=== PATIENT | female | born 1940 | race Caucasian/White ===

== ENCOUNTER 2018-12-25 14:53 | Observation (INO) ==
--- NOTE | 2018-12-25 15:15 | Emergency Department Note ---
Disposition Clinical Impression: Left-sided weakness, Left sided numbness UTI (urinary tract infection) Qualifiers: Urinary tract infection type: acute cystitis Hematuria presence: without hematuria Qualified Code(s): N30.00 - Acute cystitis without hematuria Disposition: Admitted As Inpatient Forms: ED Satisfaction Letter Time of Disposition: 16:28 Neuro HPI - General Chief Complaint: ED Neuro Symptoms/Deficit Stated Complaint: Neuro symptoms Time Seen by Provider: 12/25/18 15:00 Source: patient, family Mode of arrival: private vehicle Limitations: no limitations Nursing Notes Reviewed: Yes Vital Signs Reviewed: Yes - History of Present Illness HPI Narrative: Patient is a 78-year-old female with a past medical history including hypertension, diabetes mellitus, history of TIA, not on any anticoagulation, presenting with chief complaint of left-sided weakness and numbness. The patient states she woke up around 7 AM and felt like her left side of her face had a burning sensation and numbness from her eye into her cheek. She denies any trauma or irritation to her left eye. No increased tearing. She also feels like the left side of her face is weaker than the right side. She also complains of left upper and lower extremity numbness and weakness. She believes she went to bed in her normal state of health. She states symptoms have not gone away and came here for further evaluation. She denies abnormal gait. She states she has a mild generalized pounding headache without any loss of vision or blurred vision. She states she has some mild dental chest pain and shortness of breath as well since this morning. Denies any nausea or vomiting, abdominal pain, fevers, recent illnesses. - Related Data Home Medications: Home Medications Medication Instructions Recorded Confirmed Aspirin [Lo-Dose Aspirin EC] 81 mg PO DAILY 12/25/18 12/25/18 Cholecalciferol (D-3) [Vitamin D] 5,000 unit PO DAILY 12/25/18 12/25/18 Esomeprazole Magnesium [Nexium] 40 mg PO DAILY 12/25/18 12/25/18 Estradiol [Estrace] 0.5 mg PO DAILY 12/25/18 12/25/18 Ibuprofen [Ibu] 400 mg PO BID PRN 12/25/18 12/25/18 Levothyroxine [Synthroid] 88 mcg PO 0630 12/25/18 12/25/18 Potassium Chloride [Klor-Con 10] 20 meq PO DAILY 12/25/18 12/25/18 hydrOXYzine HCl [Hydroxyzine HCl] 25 mg PO Q8H PRN 12/25/18 12/25/18 hydroCHLOROthiazide 25 mg PO DAILY 12/25/18 12/25/18 [Hydrochlorothiazide] All systems ED: reviewed and negative except as stated. Review of Systems: As Per HPI Constitutional: Denies: fever, chills Eyes: Denies: vision change ENT ED: Denies: congestion Cardiovascular: Reports: chest pain. Denies: palpitations Respiratory: Reports: dyspnea. Denies: cough Gastrointestinal: Denies: abdominal pain, nausea, vomiting, diarrhea Genitourinary: Denies: dysuria, hematuria Neurological: Reports: headache, weakness, numbness. Denies: confusion Past Medical History - Past Medical History Attestation: Yes The following information was validated with the patient. Source: patient Medical history: Reports: TIA - Social History Smoking Status: Never smoker Smokeless Tobacco Status: No Alcohol use: Reports: none Drug use: Reports: none Physical Exam - General Limitations: no limitations General appearance: alert, in no apparent distress - Head Head exam: atraumatic, normocephalic - Eye Eye exam: Present: normal appearance, PERRL, EOMI. Absent: conjunctival injection, nystagmus, periorbital swelling - ENT ENT exam: normal exam, normal oropharynx, mucous membranes moist - Neck Neck exam: Present: normal inspection, trachea midline - Chest Chest inspection: Present: normal inspection, symmetric chest wall rise - Respiratory Respiratory exam: Present: normal lung sounds bilaterally. Absent: respiratory distress, wheezes - Cardiovascular Cardiovascular exam: Present: regular rate, normal rhythm - Abdominal Exam Abdominal exam: Present: soft, Non-Tender. Absent: distention - Extremities Exam Extremities exam: Present: normal capillary refill. Absent: pedal edema, calf tenderness - Neurological Exam Neurological exam: Present: alert, oriented X3, CN II-XII intact, motor sensory deficit (diminished on left) - Expanded Neurological Exam Speech: Present: fluid speech Cerebellar function: finger to nose: Normal Motor strength - LUE: 5/5 Motor strength - RUE: 5/5 Motor strength - LLE: 4/5 Motor strength - RLE: 5/5 Upper motor neuron exam: raj neglect: Absent bilaterally, pronator drift: Absent bilaterally - Psychiatric Psychiatric exam: Present: normal affect, normal mood - Skin Skin exam: Present: warm, dry Course Vital Signs Temperature 98 F 12/25/18 15:04 Pulse Rate 70 12/25/18 15:04 Respiratory Rate 16 12/25/18 15:04 Blood Pressure 165/69 12/25/18 15:04 O2 Sat by Pulse Oximetry 98 12/25/18 15:04 Temperature 98 F 12/25/18 15:04 Pulse Rate 71 12/25/18 15:52 Respiratory Rate 16 12/25/18 15:52 Blood Pressure 127/85 12/25/18 15:52 O2 Sat by Pulse Oximetry 98 12/25/18 15:52 Oxygen Delivery Oxygen Delivery Room Air Neuro Symptoms/Deficit - MDM Narrative Medical decision making narrative: Patient 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 She states she woke up this morning at 7 AM with left-sided numbness and left-sided weakness. NIHSS is a 2 for diminished sensation on the left side with left lower extremity weakness with a drift that does not hit the bed. Last known well is unknown and she woke up with the symptoms. Stroke alert was called. 15:[address] Bailey, radiology, who states CT head is negative. 15:[address] Gonzalez, [facility] neurology. Patient is not a candidate for acute intervention either for TPA or acute neurovascular intervention. Admit the patient for further stroke workup. Stroke alert canceled. 16:12 labs and imaging reviewed. Hospitalist paged for admission. 16:[address] Corbett, admitting hospitalist, who accepts. 16:30 Patient has a UTI and Rocephin will be given. - Medical Records Medical records reviewed: Yes I reviewed the patient's medical records. - Lab Data Lab results reviewed: Yes I reviewed the patient's lab results. Result diagrams: 12/25/18 15:11 12/25/18 15:11 Lab Results 12/25/18 12/25/18 12/25/18 Range/Units 15:11 15:11 15:11 WBC 4.8 (4.3-11.1) K/mcL RBC 4.00 (3.82-4.97) M/mcL Hgb 12.5 (11.5-15.4) g/dL Hct 39.0 (35.3-44.9) % MCV 97.5 (83.0-100.0) fL MCH 31.3 (28.0-33.3) pg MCHC 32.1 (31.6-35.5) g/dL RDW 13.2 (11.5-14.5) % Plt Count 192 (140-400) K/mcL MPV 10.4 (9.4-12.4) fL PT 11.0 (9.4-12.1) Seconds INR 1.0 APTT 31.6 (26.0-36.0) Seconds Sodium 140 (136-145) mEq/L Potassium 3.8 (3.5-5.1) mEq/L Chloride 107 (98-107) mEq/L Carbon Dioxide 26 (23-29) mEq/L BUN 21 (8-23) mg/dL Creatinine 0.82 (0.60-1.20) mg/dL Est GFR ( Amer) > 60 (> 60) Est GFR (Non-Af Amer) > 60 (> 60) BUN/Creatinine Ratio 26 (6-26) Glucose 108 H (70-105) mg/dL Calculated Osmolality 294 (280-300) Calcium 9.1 (8.6-10.3) mg/dL Troponin I < 0.03 (< 0.04) ng/mL Urine Color (Yellow) Urine Clarity (Clear) Urine pH (5.0-8.0) pH Units Ur Specific [place] (1.010-1.025) Urine Protein (Neg-Trace) mg/dL Urine Glucose (UA) (Normal) mg/dL Urine Ketones (Negative) mg/dL Urine Blood (Negative) Urine Nitrite (Negative) Urine Bilirubin (Negative) Urine Urobilinogen (Normal) mg/dL Ur Leukocyte Esterase (Negative) Urine Microscopic RBC (0-3) per hpf Urine Microscopic WBC (0-3) per hpf Ur Squamous Epith Cells (None-Few) per lpf Urine Bacteria (None-Few) per hpf Hyaline Casts (None-Few) per lpf Ur Culture Indicated? (NO) 12/25/18 Range/Units 16:18 WBC (4.3-11.1) K/mcL RBC (3.82-4.97) M/mcL Hgb (11.5-15.4) g/dL Hct (35.3-44.9) % MCV (83.0-100.0) fL MCH (28.0-33.3) pg MCHC (31.6-35.5) g/dL RDW (11.5-14.5) % Plt Count (140-400) K/mcL MPV (9.4-12.4) fL PT (9.4-12.1) Seconds INR APTT (26.0-36.0) Seconds Sodium (136-145) mEq/L Potassium (3.5-5.1) mEq/L Chloride (98-107) mEq/L Carbon Dioxide (23-29) mEq/L BUN (8-23) mg/dL Creatinine (0.60-1.20) mg/dL Est GFR ( Amer) (> 60) Est GFR (Non-Af Amer) (> 60) BUN/Creatinine Ratio (6-26) Glucose (70-105) mg/dL Calculated Osmolality (280-300) Calcium (8.6-10.3) mg/dL Troponin I (< 0.04) ng/mL Urine Color Yellow (Yellow) Urine Clarity Clear (Clear) Urine pH 7.0 (5.0-8.0) pH Units Ur Specific [place] 1.013 (1.010-1.025) Urine Protein Negative (Neg-Trace) mg/dL Urine Glucose (UA) Normal (Normal) mg/dL Urine Ketones Negative (Negative) mg/dL Urine Blood Negative (Negative) Urine Nitrite Positive A (Negative) Urine Bilirubin Negative (Negative) Urine Urobilinogen Normal (Normal) mg/dL Ur Leukocyte Esterase Trace H (Negative) Urine Microscopic RBC 3-5 H (0-3) per hpf Urine Microscopic WBC 5-15 H (0-3) per hpf Ur Squamous Epith Cells Many H (None-Few) per lpf Urine Bacteria Many H (None-Few) per hpf Hyaline Casts None Seen (None-Few) per lpf Ur Culture Indicated? YES A (NO) - Radiology Data Radiology results reviewed: Yes I reviewed the patient's radiology results. Head CT 12/25/18 15:30 IMPRESSION: No acute intracranial abnormality. Findings were discussed with Susanne Olivia at 3:32 pm on 12/25/2018. D/ / Snow Bailey MD / Snow Bailey MD Interpreting Provider: Snow Bailey MD Chest X-Ray 12/25/18 16:02 IMPRESSION: No acute findings D/ / Autumn Humphries MD / Autumn Humphries MD Interpreting Provider: Autumn Humphries MD - EKG Data EKG attestation: Yes I reviewed and interpreted this EKG. EKG results narrative: EKG obtained at 1523 shows sinus rhythm with heart rate 69, ME interval 165, QRS duration 117, QTC 428, no ST elevation, no ST depression. Nonspecific intraventricular conduction delay, and normal axis. NIH Stroke Scale - Level of Consciousness LOC: Alert - LOC Questions LOC Questions: Answers both correctly - LOC Commands LOC Commands: Performs both correctly - Best Gaze Best Gaze: Normal - Visual Visual: No visual loss - Facial Palsy Facial Palsy: Normal - Motor Arms Motor Arm-Left: No drift for 10 seconds Motor Arm-Right: No drift for 10 seconds - Motor Legs Motor Leg-Left: Drift, does NOT hit bed Motor Leg-Right: No drift for 5 seconds - Limb Ataxia Limb Ataxia: Normal, No Ataxia - Sensory Sensory: Mild to moderate loss, "not as sharp" - Best Language Best Language: No aphasia - Dysarthria Dysarthria: Normal - Extinction and Inattention Extinction and Inattention: Normal - NIHSS Total Score NIHSS Total Score: 2 TPA Checklist - LKW: 3-4.5 hrs Add. Warnings/Precautions Patient/family understanding: The patient/family members have been counseled and understood the risk, benefit, and alternatives of treatment.
[2018-12-25 15:22] LABS: Hemoglobin 12.5 g/dL (11.5-15.4); Mean Corpuscular HGB Conc 32.1 g/dL (31.6-35.5); Mean Corpuscular Hemoglobin 31.3 pg (28.0-33.3); Mean Corpuscular Volume 97.5 fL (83.0-100.0); Mean Platelet Volume 10.4 fL (9.4-12.4); Platelet Count 192 K/mcL (140-400); Red Cell Distribution Width 13.2 % (11.5-14.5); White Blood Count 4.8 K/mcL (4.3-11.1)
[2018-12-25 15:36] LABS: Activated Partial Thrombo Time 31.6 Seconds (26.0-36.0)
[2018-12-25 15:38] LABS: BUN/Creatinine Ratio 26 (6-26); Blood Urea Nitrogen 21 mg/dL (8-23); Calcium 9.1 mg/dL (8.6-10.3); Carbon Dioxide 26 mEq/L (23-29); Chloride 107 mEq/L (98-107); Glucose 108 mg/dL (70-105); Osmolality,Calculated 294 (280-300); Potassium 3.8 mEq/L (3.5-5.1); Sodium 140 mEq/L (136-145); eGFR For African Americans > 60 (> 60); eGFR For Non-African Americans > 60 (> 60)
[2018-12-25 15:45] LABS: Troponin I < 0.03 ng/mL (< 0.04)
[2018-12-25 16:26] LABS: Bilirubin,Urine Negative (Negative); Blood,Urine Negative (Negative); Clarity,Urine Clear (Clear); Color,Urine Yellow (Yellow); Glucose,Urine (UA) Normal (Normal); Ketones,Urine Negative (Negative); Leukocyte Esterase,Urine Trace (Negative); Nitrite,Urine Positive (Negative); Protein,Urine Negative (Neg-Trace); Specific Gravity,Urine 1.013 (1.010-1.025); Urobilinogen,Urine Normal (Normal)
[2018-12-25 16:28] LABS: Bacteria,Urine Many per hpf (None-Few); Hyaline Casts,Urine None Seen per lpf (None-Few); Squamous Epithelial Cell,Urine Many per lpf (None-Few)
[2018-12-25] MEDS ORDERED: cefTRIAXone 1,000 MG in 0.9 % Sodium Chloride Mini Bag 100 ML IVPB ONE (16:34)
--- NOTE | 2018-12-25 16:38 | Emergency Department Note ---
Disposition Clinical Impression: Left-sided weakness, Left sided numbness UTI (urinary tract infection) Qualifiers: Urinary tract infection type: acute cystitis Hematuria presence: without hematuria Qualified Code(s): N30.00 - Acute cystitis without hematuria Disposition: Admitted As Inpatient Condition: Fair Referrals: Lauro Todd MD [Primary Care Provider] - Forms: ED Satisfaction Letter Time of Disposition: 16:39 General Adult HPI - General Chief complaint: ED Neuro Symptoms/Deficit Stated complaint: Neuro symptoms Time Seen by Provider: 12/25/18 15:00 Source: patient, family Mode of arrival: private vehicle Limitations: no limitations Nursing Notes Reviewed: Yes Vital Signs Reviewed: Yes - History of Present Illness Pain Scale: 7 - Related Data Home Medications Medication Instructions Recorded Confirmed Aspirin [Lo-Dose Aspirin EC] 81 mg PO DAILY 12/25/18 12/25/18 Cholecalciferol (D-3) [Vitamin D] 5,000 unit PO DAILY 12/25/18 12/25/18 Esomeprazole Magnesium [Nexium] 40 mg PO DAILY 12/25/18 12/25/18 Estradiol [Estrace] 0.5 mg PO DAILY 12/25/18 12/25/18 Ibuprofen [Ibu] 400 mg PO BID PRN 12/25/18 12/25/18 Levothyroxine [Synthroid] 88 mcg PO 0630 12/25/18 12/25/18 Potassium Chloride [Klor-Con 10] 20 meq PO DAILY 12/25/18 12/25/18 hydrOXYzine HCl [Hydroxyzine HCl] 25 mg PO Q8H PRN 12/25/18 12/25/18 hydroCHLOROthiazide 25 mg PO DAILY 12/25/18 12/25/18 [Hydrochlorothiazide] Constitutional: Denies: fever, chills Eyes: Denies: vision change ENT ED: Denies: congestion Cardiovascular: Reports: chest pain. Denies: palpitations Respiratory: Reports: dyspnea. Denies: cough Gastrointestinal: Denies: abdominal pain, nausea, vomiting, diarrhea Genitourinary: Denies: dysuria, hematuria Neurological: Reports: headache, weakness, numbness. Denies: confusion Past Medical History - Past Medical History Medical history: Reports: TIA - Social History Smoking Status: Never smoker Smokeless Tobacco Status: No Alcohol use: Reports: none Drug use: Reports: none Physical Exam - General Limitations: no limitations General appearance: alert, in no apparent distress Course Vital Signs Temperature 98 F 12/25/18 15:04 Pulse Rate 70 12/25/18 15:04 Respiratory Rate 16 12/25/18 15:04 Blood Pressure 165/69 12/25/18 15:04 O2 Sat by Pulse Oximetry 98 12/25/18 15:04 Temperature 98 F 12/25/18 15:04 Pulse Rate 71 12/25/18 15:52 Respiratory Rate 16 12/25/18 15:52 Blood Pressure 127/85 12/25/18 15:52 O2 Sat by Pulse Oximetry 98 12/25/18 15:52 Oxygen Delivery Oxygen Delivery Room Air Medical Decision Making - Lab Data Result diagrams: 12/25/18 15:11 12/25/18 15:11 Lab Results 12/25/18 12/25/18 12/25/18 Range/Units 15:11 15:11 15:11 WBC 4.8 (4.3-11.1) K/mcL RBC 4.00 (3.82-4.97) M/mcL Hgb 12.5 (11.5-15.4) g/dL Hct 39.0 (35.3-44.9) % MCV 97.5 (83.0-100.0) fL MCH 31.3 (28.0-33.3) pg MCHC 32.1 (31.6-35.5) g/dL RDW 13.2 (11.5-14.5) % Plt Count 192 (140-400) K/mcL MPV 10.4 (9.4-12.4) fL PT 11.0 (9.4-12.1) Seconds INR 1.0 APTT 31.6 (26.0-36.0) Seconds Sodium 140 (136-145) mEq/L Potassium 3.8 (3.5-5.1) mEq/L Chloride 107 (98-107) mEq/L Carbon Dioxide 26 (23-29) mEq/L BUN 21 (8-23) mg/dL Creatinine 0.82 (0.60-1.20) mg/dL Est GFR ( Amer) > 60 (> 60) Est GFR (Non-Af Amer) > 60 (> 60) BUN/Creatinine Ratio 26 (6-26) Glucose 108 H (70-105) mg/dL Calculated Osmolality 294 (280-300) Calcium 9.1 (8.6-10.3) mg/dL Troponin I < 0.03 (< 0.04) ng/mL Urine Color (Yellow) Urine Clarity (Clear) Urine pH (5.0-8.0) pH Units Ur Specific [place] (1.010-1.025) Urine Protein (Neg-Trace) mg/dL Urine Glucose (UA) (Normal) mg/dL Urine Ketones (Negative) mg/dL Urine Blood (Negative) Urine Nitrite (Negative) Urine Bilirubin (Negative) Urine Urobilinogen (Normal) mg/dL Ur Leukocyte Esterase (Negative) Urine Microscopic RBC (0-3) per hpf Urine Microscopic WBC (0-3) per hpf Ur Squamous Epith Cells (None-Few) per lpf Urine Bacteria (None-Few) per hpf Hyaline Casts (None-Few) per lpf Ur Culture Indicated? (NO) 12/25/18 Range/Units 16:18 WBC (4.3-11.1) K/mcL RBC (3.82-4.97) M/mcL Hgb (11.5-15.4) g/dL Hct (35.3-44.9) % MCV (83.0-100.0) fL MCH (28.0-33.3) pg MCHC (31.6-35.5) g/dL RDW (11.5-14.5) % Plt Count (140-400) K/mcL MPV (9.4-12.4) fL PT (9.4-12.1) Seconds INR APTT (26.0-36.0) Seconds Sodium (136-145) mEq/L Potassium (3.5-5.1) mEq/L Chloride (98-107) mEq/L Carbon Dioxide (23-29) mEq/L BUN (8-23) mg/dL Creatinine (0.60-1.20) mg/dL Est GFR ( Amer) (> 60) Est GFR (Non-Af Amer) (> 60) BUN/Creatinine Ratio (6-26) Glucose (70-105) mg/dL Calculated Osmolality (280-300) Calcium (8.6-10.3) mg/dL Troponin I (< 0.04) ng/mL Urine Color Yellow (Yellow) Urine Clarity Clear (Clear) Urine pH 7.0 (5.0-8.0) pH Units Ur Specific [place] 1.013 (1.010-1.025) Urine Protein Negative (Neg-Trace) mg/dL Urine Glucose (UA) Normal (Normal) mg/dL Urine Ketones Negative (Negative) mg/dL Urine Blood Negative (Negative) Urine Nitrite Positive A (Negative) Urine Bilirubin Negative (Negative) Urine Urobilinogen Normal (Normal) mg/dL Ur Leukocyte Esterase Trace H (Negative) Urine Microscopic RBC 3-5 H (0-3) per hpf Urine Microscopic WBC 5-15 H (0-3) per hpf Ur Squamous Epith Cells Many H (None-Few) per lpf Urine Bacteria Many H (None-Few) per hpf Hyaline Casts None Seen (None-Few) per lpf Ur Culture Indicated? YES A (NO) Attestation Statement - Attestation Attestation: I have seen this patient with the resident physician, I have personally evaluated this patient. I had reviewed the chart and document dictation by the resident physician and aM in agreement with the information documented by the resident physician. Please see documentation by the resident physician for complete chart including past medical history, family medical history, review of systems, current history and physical and laboratory and imaging studies. I was present for all procedures, provided direct supervision for all procedures, was present for the entirety of all procedures and provided direct guidance during the procedures. Please see documentation by the resident physician for any procedures performed. I have reviewed all interpretations of EKGs, and reviewed all EKGs performed on patient's as well. I have also reviewed reports of imaging as provided by radiology. Patient presented to the emergency department with chief complaint of waking up this morning with left-sided weakness and tingling on the left side of her face and left arm and leg. She is a history of prior TIA and/or stroke but does not have chronic deficits at baseline. She states she has also felt a little bit dizzy. She has a mild headache. No severe sudden onset of worst headache of life. No vision changes. The patient denies chest pain shortness of breath or abdominal pain specifically. Denies any recent urinary changes. Last known well was last night, she presents 8 hours after waking up with her symptoms. On physical exam she is alert oriented 3 nontoxic in appearance cranial nerves are grossly intact although she does report some subjective decreased sensation in left side of her face, as well as subjective decreased sensation of the left arm and leg compared to the right but is able to feel everything. No significant weakness. Speech is normal. She is able to recognize objects. Visual farley are intact. Speech is clear without slurring. Abdomen is soft and nontender heart regular rate and rhythm 2/6 systolic murmur no rubs or gallops. Skin is warm dry without rash or petechiae. No CVA tenderness. No meningeal sign. The stroke alert was initiated, contacted [facility] stroke team, to discuss patient's symptoms as she is technically a wake-up stroke, however her symptoms have been present for 8 hours today and last known well was last night with an NIH stroke scale of 2, discussed with stroke neurology, who is in agreement that this patient is not a TPA candidate, would recommend stroke evaluation and admission. Head CT showed no acute findings. Basic laboratory studies were all within acceptable limits apart from evidence to suggest UTI with positive nitrites and positive bacteria but with many squamous cells as well. EKG is a normal sinus rhythm no evidence of acute ischemic dysrhythmia or hyperkalemia chest x-ray showed no acute findings. Patient was admitted to the hospital for further evaluation and management of left-sided weakness and UTI. Total critical care time as provided by myself excluding any procedures performed was 30 minutes.
--- NOTE | 2018-12-25 17:42 | Internal Med History&Physical ---
<Nelly Sheffield - Last Filed: 12/25/18 20:29> Date of Encounter: 12/25/18 Internal Medicine - H&P: HPI History of present illness: Ms. Huston is a 78 year old female Internal Medicine - H&P: Meds Aspirin [Lo-Dose Aspirin EC] 81 mg PO DAILY 12/25/18 [History] Cholecalciferol (D-3) [Vitamin D] 5,000 unit PO DAILY 12/25/18 [History] Esomeprazole Magnesium [Nexium] 40 mg PO DAILY 12/25/18 [History] Estradiol [Estrace] 0.5 mg PO DAILY 12/25/18 [History] Ibuprofen [Ibu] 400 mg PO BID PRN 12/25/18 [History] Levothyroxine [Synthroid] 88 mcg PO 0630 12/25/18 [History] Potassium Chloride [Klor-Con 10] 20 meq PO DAILY 12/25/18 [History] hydrOXYzine HCl [Hydroxyzine HCl] 25 mg PO Q8H PRN 12/25/18 [History] hydroCHLOROthiazide [Hydrochlorothiazide] 25 mg PO DAILY 12/25/18 [History] Allergy/AdvReac Type Severity Reaction Status Date / Time Erythromycin Base Allergy See Verified 12/25/18 17:06 Comments levofloxacin [From Levaquin] Allergy Swelling Verified 12/25/18 17:06 of Lip/Tongue/Throat morphine Allergy Swelling Verified 12/25/18 17:06 of Lip/Tongue/Throat Penicillins [PCN] Allergy Swelling Verified 12/25/18 17:06 of Lip/Tongue/Throat Sulfa (Sulfonamide Allergy Swelling Verified 12/25/18 17:06 Antibiotics) of Lip/Tongue/Throat IV dye Allergy Swelling Uncoded 12/25/18 17:06 of Lip/Tongue/Throat All Systems PM: A 10-system review of systems was performed and is negative for pertinent findings except as documented above in the HPI. - Constitutional Vitals: Temp Pulse Resp BP Pulse Ox 97.6 F 59 16 154/81 98 12/25/18 18:39 12/25/18 18:39 12/25/18 18:39 12/25/18 18:39 12/25/18 18:39 Internal Med - H&P Results - Labs CBC & Chem 7: 12/25/18 15:11 12/25/18 15:11 Labs: Short CBC 12/25/18 Range/Units 15:11 WBC 4.8 (4.3-11.1) K/mcL Hgb 12.5 (11.5-15.4) g/dL Hct 39.0 (35.3-44.9) % Plt Count 192 (140-400) K/mcL BMP 12/25/18 15:11 Sodium 140 Potassium 3.8 Chloride 107 Carbon Dioxide 26 BUN 21 Creatinine 0.82 Glucose 108 H Calcium 9.1 Cardiac Enzymes 12/25/18 Range/Units 15:11 Troponin I < 0.03 (< 0.04) ng/mL Urine 12/25/18 Range/Units 16:18 Urine Color Yellow (Yellow) Urine Clarity Clear (Clear) Urine pH 7.0 (5.0-8.0) pH Units Ur Specific Zimmerman 1.013 (1.010-1.025) Urine Protein Negative (Neg-Trace) mg/dL Urine Glucose (UA) Normal (Normal) mg/dL - Impressions ITS Impressions Head CT 12/25/18 15:30 IMPRESSION: No acute intracranial abnormality. Findings were discussed with Susanne Olivia at 3:32 pm on 12/25/2018. D/ / Snow Bailey MD / Snow Bailey MD Interpreting Provider: Snow Bailey MD Chest X-Ray 12/25/18 16:02 IMPRESSION: No acute findings D/ / Autumn Humphries MD / Autumn Humphries MD Interpreting Provider: Autumn Humphries MD Brain MRI 12/25/18 19:35 IMPRESSION: Cerebral atrophy. Mild chronic small vessel ischemic changes. No acute brain parenchymal abnormality. D/ / 12/25/2018 20:00:49 Flaca Shrestha MD / tracie Interpreting Provider: Flaca Shrestha MD - Assessment and Plan (1) Left-sided weakness Current Visit: Yes Status: Acute (2) Left sided numbness Current Visit: Yes Status: Acute (3) UTI (urinary tract infection) Current Visit: Yes Status: Acute Qualifiers: Urinary tract infection type: acute cystitis Hematuria presence: without hematuria Qualified Code(s): N30.00 - Acute cystitis without hematuria (4) DVT prophylaxis Current Visit: Yes Status: Acute (5) HTN (hypertension) Current Visit: Yes Status: Acute (6) HLD (hyperlipidemia) Current Visit: Yes Status: Acute - Time Spent With Patient Total time spent is greater than 50% in coordination of care (as documented) at patient's floor/unit and/or counseling patient: - Attending Attestation I saw evaluated and examined this patient and reviewed objective data including labs and my medical decision-making was reviewed with the Resident Physician/Medical Student. I agree with the documented findings, disposition and treatment plan as described except to any changes set forth below. We independently had [id number] contact with the patient. 78 year old female with history of hypertension, hypothyroidism, and history of TIA-like symptoms presented to ED for left sided focal weakness, n umbness/tingling. Symptoms started early this morning when she noticed drooping of the left side of her mouth and her eyelid with accompanied burning sensation. She did not have any slurred speech, no recent trauma, no change in vision, no loss of balance, nuchal rigidity. Numbness/tingling and weakness of extremities resolved. She did have similar symptoms one month ago that were less severe. She complains of recent fever for a few weeks. In the ED vitals were within normal limits. Urinalysis was consistent with UTI, remainder of lab workup was negative. A CT without contrast showed no acute process. A stroke alert was called and based on the timing of symptoms and improvement of s ymptoms, she was not a TPA candidate. Patient still has some residual burning of left side of face. On physical exam she is anxious appearing but in no acute distress. No focal deficits on exam, CN II-XII intact, normal patellar DTRs, normal sensation of face and extremities, and strength is symmetrical. Finger to nose and heel to carson tests were normal. Differential diagnosis include TIA vs Thakur's palsy. She will have workup including MRI, echocardiogram, carotid duplex, lipid panel. She will be emperically treated with steroids and acyclovir. Neurology consulted. In regards to UTI, she does not meet sepsis criteria, will be continued on IV Rocephin. <Bryn Burch A - Last Filed: 12/25/18 21:25> Date of Encounter: 12/25/18 Time of Encounter: 17:30 Internal Medicine - H&P: HPI Chief complaint: weakness and numbness Admitted From: Emergency Dept History of present illness: Ms. Huston is a 78 year old female with past medical history of asthma, GERD, hyperlipidemia, hypertension, hypothyroidism, anxiety, and TIA. She initially presented to [facility] ED today complaining of left-sided weakness, numbness, facial droop. She reports that when she woke up around 7 AM she experienced a burning sensation and numbness on the left side of her face. Patient's is at bedside and reported he noted some facial drooping on the left. Patient denied any slurred speech, or inability to close her eyes. Denied any trauma, irritation of the eyes, or increased tearing. She denied any change in vision. She does report some left upper and lower extremity numbness and weakness. She also reports some right hand numbness that has been occurring over the past 2 months. She reports these symptoms feel similar to her previous "mini strokes". During review of systems she does note that she has been experiencing intermittent fever over the last 2 weeks with dysuria. Denies any urinary incontinence, hematuria, or increased frequency of urination. She denied any sinus pressure, sinus pain, chest pain, shortness of breath, abdominal pain, nausea, vomiting. No diarrhea or constipation. Vital signs on presentation in the ED as follows: Temperature 90.8 Heart rate 70 Respiratory rate 16 Blood pressure 165 or 69 SPO2 98% on room air Labs from the ED were grossly unremarkable except for mildly elevated glucose at 108. Initial troponin was negative. Urinalysis demonstrated positive nitrates, trace leukocyte esterase, pyuria, and many urine bacteria. Stroke alert was called for the facial droop, numbness, weakness. CT of the head demonstrated no acute abnormality. A CXR was also obtained which showed no acute findings. The [facility] neurologist recommended that the patient is not a candidate for acute intervention or TPA at this time. Recommended for admission or facility for further stroke workup. The patient was given 1 g IV Rocephin for UTI. Patient seen and examined at bedside in the ED. Reports facial droop, weakness, and numbness have improved since arrival in the ED. She reports great concern for her multiple drug allergies and interactions during admission. No other acute complaints at this time Past Med Surg Social Fam HX - Past Medical History Attestation: Yes The following information was validated with the patient. Source: patient, obtained from family, nursing notes reviewed Medical history: asthma, GERD, hyperlipidemia, hypertension, thyroid disease, TIA Psychiatric history: anxiety - Social History Smoking Status: Never smoker Smokeless Tobacco Status: No Alcohol use: none Drug use: none All Systems PM: A 10-system review of systems was performed and is negative for pertinent findings except as documented above in the HPI. - Constitutional Constitutional: fever(s), no chills - EENT Eyes: no blurry vision, no change in vision, no irritation Ears: no decreased hearing, no tinnitus Nose, mouth and throat: no sinus pain, no sinus pressure - Cardiovascular Cardiovascular ROS IM: no chest pain, no diaphoresis, no dyspnea, no orthopnea, no palpitations - Respiratory Respiratory: no cough, no dyspnea, no wheezing, no chest congestion, no change in phlegm color - Gastrointestinal Gastrointestinal: no abdominal pain, no nausea, no vomiting - Genitourinary Genitourinary: dysuria, vaginal dryness, no difficulty urinating, no flank pain, no hematuria - Musculoskeletal Musculoskeletal ROS IM: no numbness, no tingling - Integumentary Integumentary IM: no erythema, no new lesions, no unusual bruising - Neurological Neurological ROS: as per HPI - Hematologic/Lymphatic Hematologic/Lymphatic: no easy bleeding, no easy bruising - Constitutional Vitals: Temp Pulse Resp BP Pulse Ox 98 F 61 16 157/82 97 12/25/18 15:04 12/25/18 17:02 12/25/18 17:02 12/25/18 17:02 12/25/18 17:02 General appearance: Present: cooperative, A&O X 3, pleasant, no acute distress, answers questions appropriately Exam: Constitutional: Well-developed female in no acute distress Head: Normocephalic, atraumatic Eyes: PERRL, EOMI, conjunctiva pink Neck: Supple, trachea midline, no lymphadenopathy Lungs: Clear to auscultation bilaterally. Nonlabored breathing. No wheezes, rales, or rhonchi noted. Cardiac: RRR. +s1 +s2 No murmurs, clicks, or rubs noted. GI: Abdomen soft, nontender, nondistended. Extremities: Warm, radial pulses palpable and symmetrical. No cyanosis, pedal edema, or calf tenderness. Neuro: Alert and oriented 3. Strength 5 out of 5 in all 4 extremities. Sensation intact. Cranial nerves II through XII intact. Normal speech. No noted facial droop. Skin: Warm, dry, and intact. Internal Med - H&P Results - Labs CBC & Chem 7: 12/25/18 15:11 12/25/18 15:11 Labs: Short CBC 12/25/18 Range/Units 15:11 WBC 4.8 (4.3-11.1) K/mcL Hgb 12.5 (11.5-15.4) g/dL Hct 39.0 (35.3-44.9) % Plt Count 192 (140-400) K/mcL BMP 12/25/18 15:11 Sodium 140 Potassium 3.8 Chloride 107 Carbon Dioxide 26 BUN 21 Creatinine 0.82 Glucose 108 H Calcium 9.1 Cardiac Enzymes 12/25/18 Range/Units 15:11 Troponin I < 0.03 (< 0.04) ng/mL Urine 12/25/18 Range/Units 16:18 Urine Color Yellow (Yellow) Urine Clarity Clear (Clear) Urine pH 7.0 (5.0-8.0) pH Units Ur Specific Zimmerman 1.013 (1.010-1.025) Urine Protein Negative (Neg-Trace) mg/dL Urine Glucose (UA) Normal (Normal) mg/dL - Impressions ITS Impressions Head CT 12/25/18 15:30 IMPRESSION: No acute intracranial abnormality. Findings were discussed with Susanne Olivia at 3:32 pm on 12/25/2018. D/ / Snow Bailey MD / Snow Bailey MD Interpreting Provider: Snow Bailey MD Chest X-Ray 12/25/18 16:02 IMPRESSION: No acute findings D/ / Autumn Humphries MD / Autumn Humphries MD Interpreting Provider: Autumn Humphries MD - Assessment and Plan (1) Left-sided weakness Current Visit: Yes Status: Acute Assessment and plan: Onset this morning accompanied by left sided facial numbness and tingling CT head demonstrated no acute abnormality Pt does have hx of previous TIAs Considering CVA vs TIA vs [place] Palsy Plan: Obtain MRI brain Obtain carotid dopplers Obtain Echocardiogram Obtain lipid panel with AM labs Since [place] palsy remains on differential, will consult Neurology. Also will start empiric glucocorticoids Offered pt empiric acyclovir but she reported great concern with starting this medication and wished to defer at this time (2) Left sided numbness Current Visit: Yes Status: Acute Assessment and plan: Plan as above (3) UTI (urinary tract infection) Current Visit: Yes Status: Acute Assessment and plan: Pt reports intermittent subjective fever, as well as dysuria for the past 2 weeks Urinalysis from the ED suggestive of UTI Pt was empirically started on Rocephin in the ED Urine culture sent Plan: Continue IV Rocephin 1g daily at this time Await urine culture results Qualifiers: Urinary tract infection type: acute cystitis Hematuria presence: without hematuria Qualified Code(s): N30.00 - Acute cystitis without hematuria (4) HTN (hypertension) Current Visit: Yes Status: Chronic Assessment and plan: Pt reports history of HTN BP during encounter in the ED was 157/82 May hold anti-hypertensives if BP decreases to allow for permissive HTN with possible CVA/TIA Continue to monitor closely Qualifiers: Hypertension type: unspecified Qualified Code(s): I10 - Essential (primary) hypertension (5) HLD (hyperlipidemia) Current Visit: Yes Status: Chronic Assessment and plan: Pt reports history of cholesterol problems, but does not take any medication for this at home Will check lipid panel as above (6) Hypothyroidism Current Visit: Yes Status: Chronic Assessment and plan: Pt reports hx of hypothyroidism and takes Levothyroxine at home Will check TSH Continue home Synthroid Qualifiers: Hypothyroidism type: unspecified Qualified Code(s): E03.9 - Hypothyroidism, unspecified (7) DVT prophylaxis Current Visit: Yes Status: Acute Assessment and plan: sq heparin - Time Spent With Patient Total time spent is greater than 50% in coordination of care (as documented) at patient's floor/unit and/or counseling patient:
[2018-12-25] MEDS ORDERED: Naloxone 0.4 MG/ML INJ IVP PRN (17:43)
[2018-12-25] MEDS ORDERED: cefTRIAXone 1,000 MG in Water for inj. (sterile) 10 ML IVPB ONE (18:18)
[2018-12-25] MEDS ORDERED: hydrOXYzine pamoate 25 MG CAPSULE PO PRN (18:23)
[2018-12-25] MEDS ORDERED: Ibuprofen 400 MG TABLET PO PRN (18:23)
[2018-12-25] MEDS ORDERED: predniSONE 20 MG TABLET PO ONE (18:40)
[2018-12-25] MEDS: valACYclovir 500 MG TABLET PO SCH (23:29)
[2018-12-25] MEDS: *HR* Heparin 5,000 UNIT/ML VIAL SQ SCH (23:29)
[2018-12-26 05:50] LABS: Hematocrit 38.3 % (35.3-44.9); Hemoglobin 12.2 g/dL (11.5-15.4); Immature Granulocytes % 0.3 % (0-4); Lymphocytes # 0.6 K/mcL (0.6-4.6); Lymphocytes % 15.9 %; Mean Corpuscular HGB Conc 31.9 g/dL (31.6-35.5); Mean Corpuscular Hemoglobin 30.9 pg (28.0-33.3); Mean Platelet Volume 10.7 fL (9.4-12.4); Monocytes # 0.1 K/mcL (0.0-1.3); Neutrophils # 2.9 K/mcL (1.6-8.9); Platelet Count 189 K/mcL (140-400); Red Blood Count 3.95 M/mcL (3.82-4.97); Red Cell Distribution Width 12.8 % (11.5-14.5); Segmented Neutrophils % 81.8 %; White Blood Count 3.5 K/mcL (4.3-11.1)
[2018-12-26 06:17] LABS: BUN/Creatinine Ratio 24 (6-26); Blood Urea Nitrogen 16 mg/dL (8-23); Calcium 9.2 mg/dL (8.6-10.3); Carbon Dioxide 23 mEq/L (23-29); Chloride 106 mEq/L (98-107); Glucose 158 mg/dL (70-105); Magnesium 2.3 mg/dL (1.6-2.6); Osmolality,Calculated 296 (280-300); Phosphorous 2.5 mg/dL (2.7-4.5); Sodium 141 mEq/L (136-145); Triglycerides 70 mg/dL (< 150); eGFR For African Americans > 60 (> 60); eGFR For Non-African Americans > 60 (> 60)
[2018-12-26 06:18] LABS: Cholesterol 236 mg/dL (< 200); HDL Cholesterol 59 mg/dL (40-59); LDL Cholesterol,Calculated 163 mg/dL (0-99)
[2018-12-26] MEDS: *HR* Heparin 5,000 UNIT/ML VIAL SQ SCH (06:25)
[2018-12-26 07:39] VITALS: BP 148/71
--- NOTE | 2018-12-26 07:50 | Internal Med Progress Note ---
Hospitalist Progress Note - Encounter Date of Encounter: 12/26/18 Time of Encounter: 08:37 - Subjective Interval History: Patient reports no acute events overnight. The patient says that she doesn't know if the numbness has gone away in face. Also states that she doesn't know if she is having any burning when she's urinating. Denies any trouble swallowing pills, food or liquids. Denies any chest pain, SOB, wheezing, light headedness, nausea, vomitting, diarrhea. - Exam Vitals: Temp Pulse Resp BP Pulse Ox 97.9 F 61 61 148/71 19 12/26/18 07:34 12/26/18 07:34 12/26/18 07:34 12/26/18 07:34 12/26/18 07:34 Exam: Gen: AO x3 Eyes: RICHELLE, EOMI with no conjunctivitis Throat: Moist mucous membranes with no pharyngeal erythema or tonsilar exudate CV: RRR with no murmurs Resp: CTA in all lung farley with no crackles or rhales Abdomen: Soft, non-tender with no organomegally or masses palpated Neuro: CN II-XII intact with no focal deficit Ext: DP 2/4 brynn with no pedal edema Derm: No rashes, abrasions or ulcers visualized on exam - Assessment and Plan (1) Left-sided weakness Current Visit: Yes Status: Acute Assessment and Plan: -Woke up at 7am on 12/25 with left sided facial numbness and tinglining - NIH score of 2 on admission for diminished sensation on the left side with left lower extremity weakness with a drift that does not hit the bed - [facility] neurologist called in ER recommended that patient isn't canidate for TPA or acute intervention - CT scan 12/25 No acute intracranial abnormality. - History of TIA - History of Estradial 0.5 mg PO home medication - Lipid panel 12/26 Total cholesterol 236, LDL 163, VLDL 14, HDL 59 - Neurology consulted - Patient declined empiric acyclovir on 12/25 - MRI brain 12/25 showed no acute infarct. Displayed cerebral atrophy and several areas of chronic small vessel ischemic disease atrophy Plan - Cont prednisone 60 mg PO, day 2 of 7 - Cont asprin 81 mg PO daily - Home estradial discontinued due to increased thrombosis risk. Will discuss other options at discharge - Serial Neurological evaluation - Carotid dopplers pending - Echocardiogram pending - Swallow evaluation ordered for today (2) UTI (urinary tract infection) Current Visit: Yes Status: Acute Assessment and Plan: - 2 week history of subjective fevers and dysuria -U/A 12/25 demonstrated positive nitrites, trace leukocyte esterase, pyuria, and many urine bacteria - Urine culture pending plan: -Cont IV rocephin day 2 of 5 (3) HTN (hypertension) Current Visit: Yes Status: Chronic Assessment and Plan: - Blood pressure 135/74 to 148/71 today Plan: - cont home dose of HCTZ (4) HLD (hyperlipidemia) Current Visit: Yes Status: Chronic Assessment and Plan: - Lipid panel 12/26 Total cholesterol 236, LDL 163, VLDL 14, HDL 59 Plan: - Discuss statin therapy with patient (5) Hypothyroidism Current Visit: Yes Status: Chronic Assessment and Plan: - TSH 12/26 0.380 Plan: - cont home dose of levothyroxine DVT Prophylaxis: Sub cutaneous heparin - Time Spent with Patient Total time spent is greater than 50% in coordination of care (as documented) at patient's floor/unit and/or counseling patient: Plan of Care Discussed with: patient Internal Medicine: Result - Labs CBC & Chem 7: 12/26/18 05:36 12/26/18 05:36 Labs: Short CBC 12/25/18 12/26/18 Range/Units 15:11 05:36 WBC 4.8 3.5 L (4.3-11.1) K/mcL Hgb 12.5 12.2 (11.5-15.4) g/dL Hct 39.0 38.3 (35.3-44.9) % Plt Count 192 189 (140-400) K/mcL Neutrophils # 2.9 (1.6-8.9) K/mcL BMP 12/25/18 12/26/18 15:11 05:36 Sodium 140 141 Potassium 3.8 4.0 Chloride 107 106 Carbon Dioxide 26 23 BUN 21 16 Creatinine 0.82 0.66 Glucose 108 H 158 H Calcium 9.1 9.2 Cardiac Enzymes 12/25/18 Range/Units 15:11 Troponin I < 0.03 (< 0.04) ng/mL Urine 12/25/18 Range/Units 16:18 Urine Color Yellow (Yellow) Urine Clarity Clear (Clear) Urine pH 7.0 (5.0-8.0) pH Units Ur Specific Graham 1.013 (1.010-1.025) Urine Protein Negative (Neg-Trace) mg/dL Urine Glucose (UA) Normal (Normal) mg/dL - ABG Interpretation ABG results: PT/INR, D-dimer PT 11.0 Seconds (9.4-12.1) 12/25/18 15:11 - Impressions Impressions Head CT 12/25/18 15:30 IMPRESSION: No acute intracranial abnormality. Findings were discussed with Susanne Olivia at 3:32 pm on 12/25/2018. D/ / Snow Bailey MD / Snow Bailey MD Interpreting Provider: Snow Bailey MD Chest X-Ray 12/25/18 16:02 IMPRESSION: No acute findings D/ / Autumn Humphries MD / Autumn Humphries MD Interpreting Provider: Autumn Humphries MD Brain MRI 12/25/18 19:35 IMPRESSION: Cerebral atrophy. Mild chronic small vessel ischemic changes. No acute brain parenchymal abnormality. D/ / 12/25/2018 20:00:49 Flaca Shrestha MD / tracie Interpreting Provider: Flaca Shrestha MD Consult Discharge Plan - Plan Referrals: [facility] [place]Lauro Herron MD [Primary Care Provider] - ____ (2) UTI (urinary tract infection) Qualifiers: Urinary tract infection type: acute cystitis Hematuria presence: without hematuria Qualified Code(s): N30.00 - Acute cystitis without hematuria (3) HTN (hypertension) Qualifiers: Hypertension type: unspecified Qualified Code(s): I10 - Essential (primary) hypertension (5) Hypothyroidism Qualifiers: Hypothyroidism type: unspecified Qualified Code(s): E03.9 - Hypothyroidism, unspecified
[2018-12-26] MEDS: valACYclovir 500 MG TABLET PO SCH (08:18)
[2018-12-26] MEDS ORDERED: hydroCHLOROthiazide 25 MG TABLET PO SCH (09:00)
[2018-12-26] MEDS ORDERED: Cholecalciferol (D-3) 1,000 UNIT (25MCG) TABLET PO SCH (09:00)
[2018-12-26] MEDS ORDERED: predniSONE 20 MG TABLET PO SCH (09:00)
[2018-12-26] MEDS ORDERED: Aspirin Enteric Coated 81 MG Tablet PO SCH (09:00)
--- NOTE | 2018-12-26 10:03 | Discharge Summary ---
- NOTES TO OUTPATIENT PROVIDER Notes to Outpatient Provider: Tashi SPRAGUE'd due to risk of VTE. Orders not resulted at time of discharge: Pending orders 12/25/18 16:18 Culture,Urine [RM] Stat Date of Encounter: 12/26/18 Time of Encounter: 09:57 - Discharge Diagnosis (1) Left-sided weakness Priority: Primary Status: Acute (2) Left sided numbness Priority: Secondary Status: Acute (3) UTI (urinary tract infection) Priority: Secondary Status: Acute Qualifiers: Urinary tract infection type: acute cystitis Hematuria presence: without hematuria Qualified Code(s): N30.00 - Acute cystitis without hematuria (4) HTN (hypertension) Priority: Secondary Status: Chronic Qualifiers: Hypertension type: essential hypertension Qualified Code(s): I10 - Essential (primary) hypertension (5) HLD (hyperlipidemia) Priority: Secondary Status: Chronic Qualifiers: Hyperlipidemia type: unspecified Qualified Code(s): E78.5 - Hyperlipidemia, unspecified (6) Hypothyroidism Priority: Secondary Status: Chronic Qualifiers: Hypothyroidism type: unspecified Qualified Code(s): E03.9 - Hypothyroidism, unspecified (7) DVT prophylaxis Priority: Secondary Status: Acute Hospital course: 78 year old female with history of hypertension, hypothyroidism, and history of TIA-like symptoms presented to ED for left sided focal weakness, numbness/tingling. Symptoms started early this morning when she noticed drooping of the left side of her mouth and her eyelid with accompanied burning sensation. She did not have any slurred speech, no recent trauma, no change in vision, no loss of balance, nuchal rigidity. Numbness/tingling and weakness of extremities resolved. She did have similar symptoms one month ago that were less severe. She complains of recent fever for a few weeks. In the ED vitals were within normal limits. Urinalysis was consistent with UTI, remainder of lab workup was negative. A CT without contrast showed no acute process. A stroke alert was called and based on the timing of symptoms and improvement of symptoms, she was not a TPA candidate. Patient still has some residual burning of left side of face. On physical exam she is anxious appearing but in no acute distress. No focal deficits on exam, CN II-XII intact, normal patellar DTRs, normal sensation of face and extremities, and strength is symmetrical. Finger to nose and heel to carson tests were normal. Differential diagnosis include TIA vs Thakur's palsy. She had workup including MRI, echocardiogram, carotid duplex, lipid panel. Findings were unremarkable and MRI negative for stroke. She was emperically treated with Prednisone and valvyclovir. Neurology consulted, no further intervention was needed. She was discharged in stable condition with symptoms all resolved. - Time Spent with Patient Total time spent providing and/or coordinating discharge services: - Discharge Medications Prescriptions: New predniSONE [PredniSONE] 60 mg PO DAILY #21 tablet Continued Esomeprazole Magnesium [Nexium] 40 mg PO DAILY Cholecalciferol (D-3) [Vitamin D] 5,000 unit PO DAILY Aspirin [Lo-Dose Aspirin EC] 81 mg PO DAILY Potassium Chloride [Klor-Con 10] 20 meq PO DAILY hydrOXYzine HCl [Hydroxyzine HCl] 25 mg PO Q8H PRN PRN Reason: Anxiety Levothyroxine [Synthroid] 88 mcg PO 0630 hydroCHLOROthiazide [Hydrochlorothiazide] 25 mg PO DAILY Discontinued Ibuprofen [Ibu] 400 mg PO BID PRN PRN Reason: Pain Estradiol [Estrace] 0.5 mg PO DAILY Home Medications: Aspirin [Lo-Dose Aspirin EC] 81 mg PO DAILY 12/25/18 [History] Cholecalciferol (D-3) [Vitamin D] 5,000 unit PO DAILY 12/25/18 [History] Esomeprazole Magnesium [Nexium] 40 mg PO DAILY 12/25/18 [History] Levothyroxine [Synthroid] 88 mcg PO 0630 12/25/18 [History] Potassium Chloride [Klor-Con 10] 20 meq PO DAILY 12/25/18 [History] hydrOXYzine HCl [Hydroxyzine HCl] 25 mg PO Q8H PRN 12/25/18 [History] hydroCHLOROthiazide [Hydrochlorothiazide] 25 mg PO DAILY 12/25/18 [History] predniSONE [PredniSONE] 60 mg PO DAILY #21 tablet 12/26/18 [Rx] valACYclovir [Valtrex] 1,000 mg PO TID 7 Days #42 tablet 12/26/18 [Rx] Allergies/Adverse Reactions: Allergy/AdvReac Type Severity Reaction Status Date / Time Erythromycin Base Allergy See Verified 12/25/18 17:06 Comments levofloxacin [From Levaquin] Allergy Swelling Verified 12/25/18 17:06 of Lip/Tongue/Throat morphine Allergy Swelling Verified 12/25/18 17:06 of Lip/Tongue/Throat Penicillins [PCN] Allergy Swelling Verified 12/25/18 17:06 of Lip/Tongue/Throat Sulfa (Sulfonamide Allergy Swelling Verified 12/25/18 17:06 Antibiotics) of Lip/Tongue/Throat IV dye Allergy Swelling Uncoded 12/25/18 17:06 of Lip/Tongue/Throat Date of admission: 12/25/18 16:50 Primary care physician: Lauro Todd MD Consults: 12/25/18 18:24 Consult to Neurology [CONS] Routine Consulting Provider: Neurology [facility] Reason for Consult: Possible Thakur's palsy vs TIA/CVA. Left sided weakness and facial droop. Had [facility] stroke consult in ED and was recommended for further workup here. Call Completed: No - Constitutional Vitals: Temp Pulse Resp BP Pulse Ox 97.9 F 61 61 148/71 19 12/26/18 07:34 12/26/18 07:34 12/26/18 07:34 12/26/18 07:34 12/26/18 07:34 General appearance: Present: cooperative, A&O X 3, pleasant, no acute distress, answers questions appropriately Exam: Gen: AO x3 Eyes: RICHELLE, EOMI with no conjunctivitis Throat: Moist mucous membranes with no pharyngeal erythema or tonsilar exudate CV: RRR with no murmurs Resp: CTA in all lung farley with no crackles or rhales Abdomen: Soft, non-tender with no organomegally or masses palpated Neuro: CN II-XII intact with no focal deficit Ext: DP 2/4 brynn with no pedal edema Derm: No rashes, abrasions or ulcers visualized on exam - Patient Status Disposition: Home, Self-Care Condition: Fair Functional capacity at discharge: independent ambulation Overall status at discharge: patient is back to baseline - Discharge Instructions Follow Up With: Lauro Todd MD [Primary Care Provider] - - Diet and Activity Activity: resume usual activities as tolerated Diet: advance to your usual diet
--- NOTE | 2018-12-27 17:43 | Electrocardiograph Report ---
[employer] [facility] Test Date: 2018-12-25 Pat Name: Marilyn Huston Department: EXAM4 Room: 3B31 Gender: F [employer]acker: : [id number] Requested By: Jay Mireles Order Number: [id number] Reading MD: Rob Huggins Measurements Intervals [place] Rate: 69 P: 75 [place]: 165 QRS: 14 QRSD: 117 T: 58 QT: 399 QTc: 428 Interpretive Statements Sinus rhythm Nonspecific intraventricular conduction delay Electronically Signed On 12-27-2018 17:42:31 EDT by Rob Huggins
== END 2018-12-26 11:08 | disposition home or self-care (01) ==
LOC: EMEROOARM 14:53 → 3BNU 14:53 → SUATTDRO 16:50 → 3BNU 18:10
PROVIDERS: ADMIT Internal Medicine; ATTEND Student in an Organized Health Care Education/Training Program